=== PATIENT | female | born 1985 | race Caucasian/White ===

== ENCOUNTER → 2020-06-15 | Outpatient (CLI) | payer BC | END | disposition home or self-care (01) | LOC: US 13:10 | PROVIDERS: ATTEND Surgery Vascular Surgery | DX: I82.442 Acute embolism and thrombosis of left tibial vein (principal) ==

== ENCOUNTER → 2020-06-22 | Outpatient (CLI) | payer BC | END | disposition home or self-care (01) | LOC: US 14:38 | PROVIDERS: ATTEND Surgery Vascular Surgery | DX: I82.402 Acute embolism and thrombosis of unspecified deep veins of left lower extremity (principal) ==

== ENCOUNTER → 2021-04-03 | Outpatient (CLI) | payer BC | END | disposition home or self-care (01) | LOC: US 14:33 | PROVIDERS: ATTEND Surgery Vascular Surgery | DX: I87.002 Postthrombotic syndrome without complications of left lower extremity (principal) ==

== ENCOUNTER → 2021-04-22 | Outpatient (CLI) | payer OTHER | END | disposition home or self-care (01) | LOC: COVID19 17:48 | PROVIDERS: ATTEND Internal Medicine | DX: Z11.52 Encounter for screening for COVID-19 (principal) ==